=== PATIENT | male | born 1950 | race Caucasian/White ===

== ENCOUNTER 2021-05-16 11:56 | Emergency (ER) | payer MEDICARE, BC ==
[2021-05-16] MEDS ORDERED: HYDROmorphone 0.5 MG/0.5 ML Syringe IVPUSH ONE (12:17)
[2021-05-16] MEDS ORDERED: Sodium Chloride 0.9% 10 ML Syringe FLUSH PRN (12:18)
--- NOTE | 2021-05-16 13:33 | CT ---
CT abdomen and pelvis Technique: Multiple axial sections were obtained from above the dome of the diaphragm inferiorly through the pubic symphysis. Intravenous and oral contrast were not utilized. Study has been performed as a ureteral stone protocol. Reconstructed coronal and sagittal images were obtained. Comparison: Prior CT abdomen and pelvis study of 04/28/11. Findings: Inflammatory change is seen around the right kidney. Right ureter is prominent in size. These findings are caused by an obstructing calculus within the mid right ureter measuring approximately 4.5 mm in size. Other portions of the ureters show no abnormal calcifications. Kidneys show no abnormal calcifications. Slight fibrosis is noted within both lung bases. Scattered small cysts are seen within the right and left lobes of the liver. Spleen size is normal. Small hiatal hernia is noted. Adrenal glands show no nodules. Gallbladder contains no calcified gallstones. Pancreas is within normal limits. Abdominal aorta shows atherosclerotic change. No aneurysm is seen. No retroperitoneal adenopathy or mesenteric abnormalities are seen. No pelvic mass or adenopathy is seen. Diverticuli are seen within the sigmoid colon. No inflammatory change of diverticulitis is seen. Appendix is not visualized. Bone window settings were reviewed which show previous surgery at L3 through L5. Trans-pedicle screws and intervertebral disc fixation devices are seen within the L3-4 and L4-5 discs. Scattered degenerative change is also noted. Impression: 1. Inflammatory change is seen around the right kidney as well as mildly prominent right ureter which is caused by a 4.5 mm mid-ureteral obstructing calculus. 2. Other findings as noted above which are felt to be chronic. Diagnostic code #3
--- NOTE | 2021-05-16 14:37 | EDM.PDOC ---
ED HPI GENERAL MEDICAL PROBLEM - General Chief Complaint: Flank Pain Stated Complaint: DAQUAN AMB Time Seen by Provider: 05/16/21 12:02 Source of Information: Reports: Patient, RN Notes Reviewed - History of Present Illness INITIAL COMMENTS - FREE TEXT/NARRATIVE: 70 yr old male with onset of nausea, vomiting, R back and flank pain about 4 hrs ago that continues very severe R back, flank radiating to R groin but not down his leg. EMS has given IV zofran and dilaudid. Still having severe discomfort at time of my exam. No prior fever or chills. Urine was dark at home this morning. Right Abdomen Pain Score (Numeric/FACES): 10 - Related Data Allergies Allergy/AdvReac Type Severity Reaction Status Date / Time No Known Allergies Allergy Verified 05/16/21 12:07 Home Meds: Home Meds Enalapril [Vasotec] 5 mg PO QAM 05/13/16 [History] Multivitamin [Multivitamins] 1 cap PO DAILY 05/13/16 [History] Hydrocodone/Acetaminophen [[place] 5-325 Tablet] 1 - 2 each PO Q6H PRN #40 tablet 05/14/16 [Rx] Ascorbate Calcium [Vitamin C] 500 mg PO DAILY PRN 05/16/21 [History] Cinnamon Bark [Cinnamon] 2 cap PO DAILY 05/16/21 [History] Cyclobenzaprine [Flexeril] 10 mg PO DAILY PRN 05/16/21 [History] Nabumetone 500 mg PO BID 05/16/21 [History] Ondansetron [Zofran ODT] 4 mg PO Q8HR PRN #7 tab.dis 05/16/21 [Rx] Pantoprazole [ProTONIX] 40 mg PO ACDINNER 05/16/21 [History] Rosuvastatin [Crestor] 5 mg PO QPM 05/16/21 [History] Tamsulosin [Tamsulosin 24 Hr] 0.4 mg PO DAILY #7 cap.er 05/16/21 [Rx] levoFLOXacin [Levaquin] 500 mg PO DAILY #7 tab 05/16/21 [Rx] oxyCODONE HCl/Acetaminophen [Percocet 5-325 mg Tablet] 1 each PO Q6HR PRN #20 tablet 05/16/21 [Rx] Past Medical History HEENT History: Reports: Hard of Hearing, Other (See Below) Other HEENT History: tinnitus Cardiovascular History: Reports: Hypertension Gastrointestinal History: Reports: GERD Musculoskeletal History: Reports: Other (See Below) Other Musculoskeletal History: left shoulder pain Neurological History: Reports: Vertigo Oncologic (Cancer) History: Reports: None Other Dermatologic History: cyst remove from left face - Past Surgical History HEENT Surgical History: Reports: Cataract Surgery, Tonsillectomy GI Surgical History: Reports: Appendectomy 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 Denies: Diarrhea Musculoskeletal: Reports: Back Pain Skin: Reports: No Symptoms Neurological: Reports: Dizziness ED EXAM, RENAL/ - Physical Exam Exam: See Below General Appearance: Alert, Moderate Distress Head: Atraumatic Neck: Supple Respiratory/Chest: No Respiratory Distress, Lungs Clear, Normal Breath Sounds Cardiovascular: Regular Rate, Rhythm GI/Abdominal: Soft, Non-Tender. No: Guarding Back Exam: CVA Tenderness (R) Extremities: No: Pedal Edema, Leg Pain Neurological: Alert, Oriented, No Motor/Sensory Deficits Skin Exam: Warm, Dry, Normal Color Course - Vital Signs Last Recorded V/S: Last Vital Signs Temp 96.9 F 05/16/21 12:00 Pulse 67 05/16/21 12:00 Resp 20 05/16/21 12:00 BP 161/88 H 05/16/21 12:00 Pulse Ox 100 05/16/21 12:00 - Orders/Labs/Meds Orders: Active Orders 24 hr Category Date Time Status Bladder Scan [RC] ONETIME Care 05/16/21 12:29 Active Peripheral IV Care [RC] . DIRECTED Care 05/16/21 12:18 Active CULTURE URINE [MREF] Stat Lab 05/16/21 13:23 Received Sodium Chloride 0.9% [Saline Flush] Med 05/16/21 12:18 Active 10 ml FLUSH ASDIRECTED PRN Peripheral IV Insertion Adult [OM.PC] Stat Oth 05/16/21 12:17 Ordered Medication Orders Sodium Chloride (Sodium Chloride 0.9% 10 Ml Syringe) 10 ml FLUSH ASDIRECTED PRN PRN Reason: Keep Vein Open Last Admin: 05/16/21 12:42 Dose: 10 ml Documented by: [id number] Labs: Laboratory Tests 05/16/21 05/16/21 05/16/21 Range/Units 12:26 12:26 12:26 WBC 6.27 (4.23-9.07) K/mm3 RBC 4.87 (4.63-6.08) M/mm3 Hgb 15.1 (13.7-17.5) gm/dl Hct 42.5 (40.1-51.0) % MCV 87.3 (79.0-92.2) fl MCH 31.0 (25.7-32.2) pg MCHC 35.5 (32.2-35.5) g/dl RDW Std Deviation 41.6 (35.1-43.9) fL Plt Count 204 (163-337) K/mm3 MPV 8.9 L (9.4-12.3) fl Neut % (Auto) 60.3 (34.0-67.9) % Lymph % (Auto) 29.5 (21.8-53.1) % [place] % (Auto) 7.2 (5.3-12.2) % Eos % (Auto) 2.2 (0.8-7.0) Baso % (Auto) 0.5 (0.1-1.2) % Neut # (Auto) 3.78 (1.78-5.38) K/mm3 Lymph # (Auto) 1.85 (1.32-3.57) K/mm3 [place] # (Auto) 0.45 (0.30-0.82) K/mm3 Eos # (Auto) 0.14 (0.04-0.54) K/mm3 Baso # (Auto) 0.03 (0.01-0.08) K/mm3 Manual Slide Review Not Reportable Sodium 142 (136-145) mEq/L Potassium 3.5 (3.5-5.1) mEq/L Chloride 105 (98-107) mEq/L Carbon Dioxide 23 (21-32) mEq/L Anion Gap 17.5 H (5-15) BUN 16 (7-18) mg/dL Creatinine 1.4 H (0.7-1.3) mg/dL Est Cr Clr Drug Dosing 52.35 mL/min Estimated GFR (MDRD) 50 (>60) mL/min BUN/Creatinine Ratio 11.4 L (14-18) Glucose 112 H (70-99) mg/dL Calcium 8.9 (8.5-10.1) mg/dL Total Bilirubin 0.9 (0.2-1.0) mg/dL AST 27 (15-37) U/L ALT 30 (16-63) U/L Alkaline Phosphatase 80 (46-116) U/L C-Reactive Protein <0.2 (<1.0) mg/dL Total Protein 7.5 (6.4-8.2) g/dl Albumin 3.9 (3.4-5.0) g/dl Globulin 3.6 gm/dL Albumin/Globulin Ratio 1.1 (1-2) Urine Color (Yellow) Urine Appearance (Clear) Urine pH (5.0-8.0) Ur Specific [place] (1.005-1.030) Urine Protein (Negative) Urine Glucose (UA) (Negative) Urine Ketones (Negative) Urine Occult Blood (Negative) Urine Nitrite (Negative) Urine Bilirubin (Negative) Urine Urobilinogen (0.2-1.0) Ur Leukocyte Esterase (Negative) Urine RBC (0-5) /hpf Urine WBC (0-5) /hpf Ur Squamous Epith Cells (0-5) /hpf Urine Bacteria (FEW) /hpf Urine Mucus (FEW) /hpf 05/16/21 Range/Units 13:23 WBC (4.23-9.07) K/mm3 RBC (4.63-6.08) M/mm3 Hgb (13.7-17.5) gm/dl Hct (40.1-51.0) % MCV (79.0-92.2) fl MCH (25.7-32.2) pg MCHC (32.2-35.5) g/dl RDW Std Deviation (35.1-43.9) fL Plt Count (163-337) K/mm3 MPV (9.4-12.3) fl Neut % (Auto) (34.0-67.9) % Lymph % (Auto) (21.8-53.1) % [place] % (Auto) (5.3-12.2) % Eos % (Auto) (0.8-7.0) Baso % (Auto) (0.1-1.2) % Neut # (Auto) (1.78-5.38) K/mm3 Lymph # (Auto) (1.32-3.57) K/mm3 [place] # (Auto) (0.30-0.82) K/mm3 Eos # (Auto) (0.04-0.54) K/mm3 Baso # (Auto) (0.01-0.08) K/mm3 Manual Slide Review Sodium (136-145) mEq/L Potassium (3.5-5.1) mEq/L Chloride (98-107) mEq/L Carbon Dioxide (21-32) mEq/L Anion Gap (5-15) BUN (7-18) mg/dL Creatinine (0.7-1.3) mg/dL Est Cr Clr Drug Dosing mL/min Estimated GFR (MDRD) (>60) mL/min BUN/Creatinine Ratio (14-18) Glucose (70-99) mg/dL Calcium (8.5-10.1) mg/dL Total Bilirubin (0.2-1.0) mg/dL AST (15-37) U/L ALT (16-63) U/L Alkaline Phosphatase (46-116) U/L C-Reactive Protein (<1.0) mg/dL Total Protein (6.4-8.2) g/dl Albumin (3.4-5.0) g/dl Globulin gm/dL Albumin/Globulin Ratio (1-2) Urine Color Yellow (Yellow) Urine Appearance Slt cloudy H (Clear) Urine pH 8.0 (5.0-8.0) Ur Specific [place] 1.025 (1.005-1.030) Urine Protein 1+ H (Negative) Urine Glucose (UA) Negative (Negative) Urine Ketones Negative (Negative) Urine Occult Blood 3+ H (Negative) Urine Nitrite Negative (Negative) Urine Bilirubin Negative (Negative) Urine Urobilinogen 0.2 (0.2-1.0) Ur Leukocyte Esterase Negative (Negative) Urine RBC Too numerous to cnt H (0-5) /hpf Urine WBC 0-5 (0-5) /hpf Ur Squamous Epith Cells 0-5 (0-5) /hpf Urine Bacteria Many H (FEW) /hpf Urine Mucus Not seen (FEW) /hpf Meds: Medications Generic Name Dose Route Start Last Admin Trade Name Monty PRN Reason Stop Dose Admin Sodium Chloride 10 ml 05/16/21 12:18 05/16/21 12:42 Sodium Chloride 0.9% 10 Ml Syringe FLUSH 10 ml ASDIRECTED PRN Administration Keep Vein Open Discontinued Medications Generic Name Dose Route Start Last Admin Trade Name Monty PRN Reason Stop Dose Admin Hydromorphone HCl 0.5 mg 05/16/21 12:17 05/16/21 12:41 Hydromorphone 0.5 Mg/0.5 Ml Syringe IVPUSH 05/16/21 12:18 0.5 mg ONETIME ONE Administration Tamsulosin HCl 0.4 mg 05/16/21 15:01 Tamsulosin 0.4 Mg Cap.Er PO 05/16/21 15:02 ONETIME ONE - Re-Assessments/Exams Free Text/Narrative Re-Assessment/Exam: 05/16/21 14:[address] shows a 4.5 mm stone R mid ureter. Ua shows blood, protein, some bacteria reported but nitrate and leukocycte neg. Will do a culture of his urine. Will start him levaquin 500 mg daily. Departure - Departure Time of Disposition: 15:08 Disposition: Home, Self-Care 01 Condition: Fair Clinical Impression: Kidney stone on right side, Renal colic on right side - Discharge Information Prescriptions: Tamsulosin [Tamsulosin 24 Hr] 0.4 mg PO DAILY #7 cap.er levoFLOXacin [Levaquin] 500 mg PO DAILY #7 tab oxyCODONE HCl/Acetaminophen [Percocet 5-325 mg Tablet] 1 each PO Q6HR PRN #20 tablet PRN Reason: Pain Ondansetron [Zofran ODT] 4 mg PO Q8HR PRN #7 tab.dis PRN Reason: Nausea/Vomiting Forms: ED Department Discharge Additional Instructions: Strain urine to watch for stone. flomax 0.4 mg daily. zofran if needed for any further nausea or vomiting. Levaquin antibiotic 500 mg daily for infection control. Tylenol 3 to 4 times daily for mild to moderate pain or percocet if needed for severe pain. Prescriptions have been sent to [facility]. See [facility] Wednesday or Wednesday, call for appt. Return to ED as needed if symptoms worsening in any way. Sepsis Event Note (ED) - Focused Exam Vital Signs: Vital Signs Temp Pulse Resp BP Pulse Ox 05/16/21 12:00 96.9 F 67 20 161/88 H 100 - My Orders Last 24 Hours: My Active Orders 05/16/21 12:17 Peripheral IV Insertion Adult [OM.PC] Stat 05/16/21 12:18 Peripheral IV Care [RC] . DIRECTED Sodium Chloride 0.9% [Saline Flush] 10 ml FLUSH ASDIRECTED PRN 05/16/21 12:29 Bladder Scan [RC] ONETIME 05/16/21 13:23 CULTURE URINE [MREF] Stat - Assessment/Plan Last 24 Hours: My Active Orders 05/16/21 12:17 Peripheral IV Insertion Adult [OM.PC] Stat 05/16/21 12:18 Peripheral IV Care [RC] . DIRECTED Sodium Chloride 0.9% [Saline Flush] 10 ml FLUSH ASDIRECTED PRN 05/16/21 12:29 Bladder Scan [RC] ONETIME 05/16/21 13:23 CULTURE URINE [MREF] Stat
[2021-05-16] MEDS ORDERED: Tamsulosin 0.4 MG Cap.ER PO ONE (15:01)
[2021-05-16 15:51] VITALS: BP 158/72; PULSE 74
== END 2021-05-16 15:47 | disposition home or self-care (01) ==
LOC: JD.ED 11:56
DX: N20.2 Calculus of kidney with calculus of ureter (principal); K21.9 Gastro-esophageal reflux disease without esophagitis; I10 Essential (primary) hypertension; Z79.899 Other long term (current) drug therapy
CPT/HCPCS: 36415; 74176; 80053; 81001; 85025; 86140; 87086; 96374; 99285; A9270; J1170

== ENCOUNTER 2023-01-20 15:15 | Emergency (ER) | payer MEDICARE, BC ==
[2023-01-20] MEDS ORDERED: Sodium Chloride 0.9% 1,000 ML IV SCH (15:45)
[2023-01-20 15:52] LABS: BASOPHILS ABSOLUTE AUTO 0.04 K/mm3 (0.01-0.08); BASOPHILS PERCENT AUTO 0.9 % (0.1-1.2); EOSINOPHILS ABSOLUTE AUTO 0.12 K/mm3 (0.04-0.54); EOSINOPHILS PERCENT AUTO 2.8 (0.8-7.0); HEMATOCRIT 36.1 % (40.1-51.0); LYMPHOCYTES ABSOLUTE AUTO 1.85 K/mm3 (1.32-3.57); LYMPHOCYTES PERCENT AUTO 42.7 % (21.8-53.1); MEAN CORPUSCULAR HEMOGLOBIN 31.3 pg (25.7-32.2); MEAN CORPUSCULAR HGB CONC 35.5 g/dl (32.2-35.5); MEAN CORPUSCULAR VOLUME 88.3 fl (79.0-92.2); MEAN PLATELET VOLUME 8.8 fl (9.4-12.3); MONOCYTES ABSOLUTE AUTO 0.34 K/mm3 (0.30-0.82); MONOCYTES PERCENT AUTO 7.9 % (5.3-12.2); NEUTROPHILS ABSOLUTE AUTO 1.98 K/mm3 (1.78-5.38); NEUTROPHILS PERCENT AUTO 45.7 % (34.0-67.9); PLATELET COUNT,PLT 180 K/mm3 (163-337); RED BLOOD CELL COUNT 4.09 M/mm3 (4.63-6.08); WHITE BLOOD CELL COUNT,WBC 4.33 K/mm3 (4.23-9.07)
[2023-01-20 15:55] LABS: HEMOGLOBIN 12.8 gm/dl (13.7-17.5)
[2023-01-20 16:24] LABS: INR 1.07; PROTHROMBIN TIME 11.4 SECONDS (9.7-12.0)
[2023-01-20 16:26] LABS: PTT,PARTIAL THROMBOPLSTIN TIME 24.1 SECONDS (21.7-31.4)
[2023-01-20 16:35] LABS: A/G RATIO 1.2 (1-2); ALANINE AMINOTRANSFERASE,ALT 28 U/L (16-63); ALBUMIN 3.7 g/dl (3.4-5.0); ALKALINE PHOSPHATASE 87 U/L (46-116); ANION GAP 14.1 (5-15); ASPARTATE AMNIOTRANSFERASE,AST 26 U/L (15-37); BILIRUBIN TOTAL 1.1 mg/dL (0.2-1.0); BLOOD UREA NITROGEN,BUN 16 mg/dL (7-18); BUN/CREATININE RATIO 14.5 (14-18); CALCIUM 8.9 mg/dL (8.5-10.1); CARBON DIOXIDE,CO2 23 mEq/L (21-32); CHLORIDE,CL 107 mEq/L (98-107); CREATINE KINASE,CK 115 U/L (39-308); CREATININE 1.1 mg/dL (0.7-1.3); ESTIMATED GFR 70 mL/min (>60); GLUCOSE RANDOM 114 mg/dL (70-99); MAGNESIUM 1.9 mg/dL (1.8-2.4); POTASSIUM,K 3.1 mEq/L (3.5-5.1); PROTEIN TOTAL,TP 6.9 g/dl (6.4-8.2); SODIUM,NA 141 mEq/L (136-145); TROPONIN I HIGH SENSITIVITY 7 pg/mL (<=76); TSH 0.933 uIU/mL (0.358-3.74)
[2023-01-20 18:09] LABS: INFLUENZA A NAA NEGATIVE (NEGATIVE); RESPIRATORY SYNCYTIAL VIR NAA NEGATIVE (NEGATIVE)
[2023-01-20 18:12] LABS: CORONAVIRUS COVID-19 NAA POSITIVE (NEGATIVE)
[2023-01-20 21:04] VITALS: BP 162/89; PULSE 57
== END 2023-01-20 21:00 | disposition home or self-care (01) ==
LOC: JD.ED 15:15
DX: U07.1 COVID-19 (principal); R00.1 Bradycardia, unspecified; I10 Essential (primary) hypertension; K21.9 Gastro-esophageal reflux disease without esophagitis; Z79.899 Other long term (current) drug therapy
CPT/HCPCS: 0241U; 36415; 70450; 71250; 72125; 74176; 80053; 80307; 82140; 82550; 83735; 84443; 84484; 85025; 85610; 85730; 86850; 86900; 86901; 87040; 93005; 93225; 93226; 96360; 96361; 99285; J7030; 93010; 99283